=== PATIENT | male | born 1955 | race Caucasian/White ===

== ENCOUNTER 2022-07-07 08:35 | Day surgery (SDC) | payer MEDICARE ==
[~2022-07-07 08:35] MED LIST: XYLOCAINE 1% HCL 20 ML MDV ONE
[2022-07-07] MEDS ORDERED: Lactated Ringers 1,000 ML IV SCH (10:00)
[2022-07-07] MEDS ORDERED: CEFAZOLIN 2 GM-D5W BAG** 2 GM/50 ML ML IV SCH (10:00)
[2022-07-07] MEDS ORDERED: Lactated Ringers 0 ML IV ONE (10:01)
[2022-07-07] MEDS ORDERED: CEFAZOLIN 2 GM-D5W BAG** 2 GM/50 ML ML IV ONE (10:01)
--- NOTE | 2022-07-07 10:40 | HP ---
DATE OF SURGERY: 07/07/2022 HISTORY OF PRESENT ILLNESS: The patient is a 67-year-old male presents with complaints of a thigh cyst on the left side. He got bit by a spider about a year ago that got infected. It was infected here recently and had expressed some fluid. PAST MEDICAL HISTORY: Hypertension, diabetes. PAST SURGICAL HISTORY: Hernia repair. Tonsillectomy. ALLERGIES: DAPAGLIFLOZIN. METFORMIN. MEDICATIONS: Vitamin D, vitamin B-12, fish oil, lisinopril/hydrochlorothiazide, Pravastatin, pioglitazone. FAMILY HISTORY: Diabetes, heart disease, breast cancer. SOCIAL HISTORY: Negative. REVIEW OF SYSTEMS: CONSTITUTIONAL: Denies fever or chills. CHEST: Denies shortness of breath. CVS: Denies chest pain. ABDOMEN: Denies abdominal pain. PHYSICAL EXAMINATION: GENERAL: No acute distress. CHEST: Nonlabored. No shortness of breath. CVS: Regular rate and rhythm. ABDOMEN: Soft. INTEGUMENTARY: A 2.5 cm indurated cyst with purulent drainage. IMPRESSION: Left thigh cyst. He was given some Cipro to dry this up preoperatively. PLAN: Excision of left thigh cyst with Dr. Sathish Valerio. As dictated by Wanda Gonzalez NP.
[2022-07-07] MEDS ORDERED: Versed 2 MG/2 ML Injection ONE (11:30)
[2022-07-07] MEDS ORDERED: Xylocaine-Mpf 2% 5 Ml Vial ONE (11:30)
[2022-07-07] MEDS ORDERED: DIPRIVAN 200 MG/20 ML IV ONE ×3 (11:30→12:34)
[2022-07-07] MEDS ORDERED: SUBLIMAZE 100 MCG/2 ML ONE (11:30)
[2022-07-07] MEDS ORDERED: Sensorcaine 0.25% 10 ML ONE (12:05)
[2022-07-07] MEDS ORDERED: Lactated Ringers 1,000 ML IV ONE (12:13)
[2022-07-07] MEDS ORDERED: Ketamine HCl 50 MG/ML ONE (12:35)
[2022-07-07 14:13] VITALS: O2SAT 95
--- NOTE | 2022-07-07 14:34 | OP ---
SURGERY DATE/TIME: 07/07/2022 1212 PREOPERATIVE DIAGNOSIS: A 3 cm abscessed scarred area left inner thigh. POSTOPERATIVE DIAGNOSIS: A 3 cm abscessed scarred area left inner thigh. PROCEDURE: Excision and closure measuring 7 cm long, 4 cm wide elliptical down to fascia. Excision and primary closure was performed. SURGEON: Sathish Valerio M.D. ASSISTANTS: Andrew Jarquin M.D. and Lorelei Bolivar, Medical Student III. ANESTHESIA: General. DESCRIPTION OF PROCEDURE: This area was elliptically excised. Hemostasis obtained with electrocautery. Approximated with vertical mattress sutures #3-0 Prolene. Sterile dressing applied. The patient tolerated the procedure satisfactory. All the hard, firm, indurated scar tissue was removed.
[2022-07-07 15:00] VITALS: BP 167/89; PULSE 55
== END 2022-07-07 14:45 | disposition home or self-care (01) ==
LOC: SDC 08:35
PROVIDERS: ATTEND Surgery
DX: L72.0 Epidermal cyst (principal); E11.9 Type 2 diabetes mellitus without complications
CPT/HCPCS: 82947; J0690; J2250; J2704; J3010

== ENCOUNTER 2024-05-22 05:47 | Day surgery (SDC) | payer MEDICARE ==
[2024-05-22] MEDS: Lactated Ringers 1,000 ML IV SCH (06:15)
[2024-05-22 06:51] LABS: ANION GAP 15.6 MEQ/L (5-15); Calcium 9.6 mg/dL (8.4-10.2); Creatinine 1 1.03 mg/dL (0.66-1.25); EST GLOMERULAR FILTRATION RATE 79.1 ML/MIN; Potassium 4.4 mmol/L (3.5-5.1)
[2024-05-22] MEDS ORDERED: propofoL IV ONE ×3 (06:58→07:34)
[2024-05-22] MEDS ORDERED: Versed 2 MG/2 ML Injection ONE (07:01)
[2024-05-22 07:50] VITALS: RESP 18
[2024-05-22 07:59] VITALS: PULSE 73; TEMP 97.8
[2024-05-22 08:05] VITALS: BP 105/62; O2SAT 93
--- NOTE | 2024-05-23 10:32 | OP ---
SURGERY DATE/TIME: 05/22/2024 [id number] PREOPERATIVE DIAGNOSIS: Screening colonoscopy. POSTOPERATIVE DIAGNOSIS: Colon polyps x2. PROCEDURE PERFORMED: Colonoscopy. SURGEON: Shamir Mishra MD ANESTHESIA: MAC by Anthony Wade CRNA. ESTIMATED BLOOD LOSS: Minimal. SPECIMENS: Two hot forceps polypectomies. DESCRIPTION OF PROCEDURE AND FINDINGS: After informed written consent was obtained, the patient was taken to the endoscopy suite. He underwent moderate anesthesia and desired level of consciousness was confirmed. Digital rectal exam showed normal sphincter tone, no internal lesions. Scope was inserted into the rectum, and sequentially the entire colonic mucosa was traversed. Level of the cecum was reached and verified with direct visualization of the ileocecal valve. Upon withdrawal, there were scattered diverticula. No other lesions until the sigmoid colon. There was a small sessile polyp grasped with the forceps, cauterized, and removed, and sent for pathology testing. The area was hemostatic. Remainder of the exam is unremarkable until the rectum was reached. There was a small sessile polyp likewise grasped with the forceps, cauterized, and removed in its entirety. Retroflexion showed no internal lesions. The scope was removed, and the patient was transferred to the recovery room in good condition. He will follow up in a week for pathology report.
== END 2024-05-22 08:18 | disposition home or self-care (01) ==
LOC: SDC 05:47
PROVIDERS: ATTEND Family Medicine
DX: Z12.11 Encounter for screening for malignant neoplasm of colon (principal); D12.5 Benign neoplasm of sigmoid colon; K62.1 Rectal polyp; K57.30 Diverticulosis of large intestine without perforation or abscess without bleeding; I10 Essential (primary) hypertension; E11.9 Type 2 diabetes mellitus without complications
CPT/HCPCS: 36415; 80048; 83036; 93005; J2250; J2704